=== PATIENT | male | born 1955 | race Caucasian/White ===

== ENCOUNTER 2020-01-22 05:30 | Day surgery (SDC) | payer MEDICARE, OTHER ==
[~2020-01-22] VITALS: Ht 167.6 cm; Wt 81.6 kg
--- NOTE | ~2020-01-22 | OP ---
PATIENT NAME: RESHMA ROQUE MEDICAL RECORD: [id number] :53 LOCATION:D.OPS ADMISSION DATE: SURGEON: ANDREW WASHINGTON DPM DATE OF OPERATION: 01/22/2020 PREOPERATIVE DIAGNOSIS: Enlarged tibial sesamoid with sesamoid fracture, right foot. POSTOPERATIVE DIAGNOSIS: Enlarged tibial sesamoid with sesamoid fracture, right foot. PROCEDURE: Tibial sesamoid shaving with fracture fragment removal, right foot. ANESTHESIA: General with local infiltrate utilizing lidocaine and Marcaine around the first ray of the right foot. HEMOSTASIS: Right ankle tourniquet at 250 mmHg. PREOPERATIVE DETAILS: The patient was taken to the OR and placed on the operative table in a supine position. This was followed by induction of general anesthesia and infiltration of local anesthetic. The right extremity was then prepped and draped in usual aseptic technique followed by exsanguination and inflation of tourniquet. A 15-blade was used to create a 3 cm linear incision over the medial aspect of the first metatarsal head. The incision was deepened down through subcutaneous tissue. The joint capsule was punctured. The tibial sesamoid was then freed plantarly, it was then freed dorsally. There was noted to be a fracture, which the distal half and the proximal half. The distal fragment was removed, being sure to avoid the flexor longus tendon. The proximal sesamoid that was left was shaved due to its significant thickness. The rough areas were smoothed with a bone rasp. The wound was flushed. Excellent reduction of enlargement was noted clinically. The capsule was closed with 2-0 Vicryl, the subcutaneous tissue with 4-0 Rapide and the skin was closed with 4-0 Rapide in a subcuticular technique followed by Dermabond. Adaptic, 4 x 4 and Conform were used to dress the wound followed by Coban. Tourniquet was deflated. POSTOPERATIVE DETAILS: The patient tolerated the procedure well and left the OR with vital signs stable and vascular status at preoperative levels. The patient was transported to recovery per anesthesia in stable condition. TRANSINT:[id number] Voice Confirmation ID: [id number] DOCUMENT ID: [id number] ANDREW WASHINGTON DPM CC: [id number] DICTATION DATE: 01/22/20813 PROMPT CARE RN: 01/22/20 1217 [facility] 01/22/20 [facility] [address] [id number]
[~2020-01-22 05:30] MED LIST: BAYER CHEWABLE81 MG PO; BENICAR HCT 401 EAC1 PO; GLIPIZIDE10 MG PO; LYRICA200 MG PO; METFORMIN HCL500 M1 PO; NORVASC10 MG PO; PROZAC40 MG PO; ZANAFLEX4 MG PO
[2020-01-22 06:02] LABS: HEMATOCRIT 40.7 % (42.0-54.0); HEMOGLOBIN 13.7 g/dL (13.5-17.5); MCH 31.5 pg (26.0-34.0); MCHC 33.7 g/dL (31.0-37.0); MCV 93.6 fL (80.0-100.0); MEAN PLATELET VOLUME 10.3 fL (7.4-10.4); RBC 4.35 10x6/uL (4.20-6.10); RDW 13.1 % (11.5-14.5); WBC 6.4 10x3/uL (4.8-10.8)
[2020-01-22 06:21] LABS: CREATININE - SERUM 1.1 mg/dL (0.6-1.3)
[2020-01-22 06:22] VITALS: BP 139/80; Ht 167.6 cm; Wt 81.6 kg
== END 2020-01-22 09:40 | disposition home or self-care (01) ==
LOC: D.OPS 05:30
PROVIDERS: Anesthesiology; ATTEND Podiatrist
DX: S92.811A Other fracture of right foot, initial encounter for closed fracture (principal); X58.XXXA Exposure to other specified factors, initial encounter; M89.371 Hypertrophy of bone, right ankle and foot

== ENCOUNTER → 2020-02-28 20:59 | Outpatient (CLI) | payer MEDICARE, OTHER ==
[2020-01-22 06:22] VITALS: BMI 29.1
== END | disposition home or self-care (01) ==
LOC: D.LABREF 20:59
PROVIDERS: ATTEND Podiatrist
DX: S92.311G Displaced fracture of first metatarsal bone, right foot, subsequent encounter for fracture with delayed healing (principal); M12.9 Arthropathy, unspecified; L60.0 Ingrowing nail